=== PATIENT | female | born 1965 | race Caucasian/White ===

== ENCOUNTER 2018-10-17 09:27 | Outpatient (CLI) | payer OTHER ==
[~2018-10-17] VITALS: Ht 175.3 cm; Wt 57.7 kg
--- NOTE | ~2018-10-17 | HEMODYNAMI ---
PATIENT:REAGAN ANN MEDICAL RECORD: [id number] : 61 LOCATION:[facility] ADMISSION DATE: 10/17/18 Generatedon:10/17/201811:32 Patient name: REAGAN ANN Patient #: [id number] SSN: D OB: 1965 Date of study: 10/17/2018 Page: Of Hemodynamic Procedure Report Patient Data Patient Demographics Procedure consent was obtained First Name: REAGAN Gender: Female Last Name: MARISSA : 1965 [facility] Initial: R Age: 52 year(s) Patient #: [id number] Race: Unknown Additional ID: [id number] Contact details [address]: [address] [place] [address] State: [place] City: [place] Zip code: [address] Admission Admission Data Admission Date: 10/17/2018 Admission Time: 9:27 Procedure Procedure Types Cath Procedure Diagnostic Procedure LHC LHC w/Coronaries FFR/IVUS Intra-Coronary IVUS Initial PCI Procedure Coronary Stent Coronary Stent Initial Procedure Description Procedure Date Procedure Date: 10/17/2018 Procedure Start Time: 11:11 Procedure End Time: 11:24 Procedure Staff Name Function Marco Vaca MD Performing Physician Josefina Dave RT Monitor Florence Peralta RT Scrub Arturo Johnson RN Nurse Andrea Hinds RN Slot Router Procedure Data Cath Procedure Fluoroscopy Diagnostic fluoroscopy Total fluoroscopy Time: 3.6 time: 3.6 min min Diagnostic fluoroscopy Total fluoroscopy dose: 240 dose: 240 mGy mGy Contrast Material Contrast Material Type Amount (ml) Isovue 300 80 Entry Location Entry Primary Successful Side Size Upsize Upsize Entry Closure Elias ccessful Closure Location (Fr) 1 (Fr) 2 (Fr) Remarks Device Remarks Radial Right 6 Fr Mechanical artery Short Compression Estimated blood loss: 5 ml Diagnostic catheters Device Type Used For End Catheter Placement DIAGNOSTIC Ralph 110cm 5 Multi-vessel Fr catheter ([id number]) Angiography Procedure Complications No complications Procedure Medications Medication Administration Route Dosage Oxygen etCO2 Nasal cannula 2 l/min Lidocaine 2% added to field 20 Heparin Flush Bag added to field 2 bags (1000units/500ml NS) Radial Cocktail I.A. 1 syringe (Verapamil 2mg/Nitro 400mcg/Heparin 1500units) 0.9% NaCl I.V. 100 ml/hr Versed I.V. 1 mg Fentanyl I.V. 50 mcg Versed I.V. 1 mg Fentanyl I.V. 50 mcg Heparin Bolus I.V. 4000 units Integrilin (Bolus I.V. 5 ml 2mg/ml) Solumedrol I.V. 125 mg Plavix P.O. 600 mg Hemodynamics Rest Heart Rate: 52 (bpm) Pressure Samples Time Site Value (mmHg) Purpose Heart Use Rate(bpm) 11:13 LV 47/16,23 Snapshot 61 Snapshots Pre Cath Intra NCS Post Cath Vital Signs Time Heart Resp SPO2 etCO2 NIBP Rhythm Pain Status Sedation Rate (ipm) (%) (mmHg) (mmHg) Level (bpm) 11:04:16 48 27 100 32.2 131/72(91) NSR 0 (11) , No 10(A) pain 11:08:30 64 25 97 0 107/68(83) NSR 0 (11) , No 10(A) pain 11:12:40 49 31 99 30.8 116/50(79) NSR 0 (11) , No 9(A) pain 11:16:56 54 15 99 0 91/41(60) NSR 0 (11) , No 9(A) pain 11:21:00 59 17 100 33 109/54(76) NSR 4 (11) , 10(A) Distressing Medications Time Medication Route Dose Verified Delivered Reason Not es Effectiveness by by 11:05:18 Oxygen etCO2 2 l/min Marco Mendez used for Nasal Lio Hinsd RN procedure cannula 11:05:25 0.9% NaCl I.V. 100 Marco Mendez Per physician ml/hr Lio Hinds RN 11:05:34 Lidocaine 2% added 20ml Marco Lara for local to vial Lio Vaca MD anesthetic field 11:05:41 Heparin Flush added 2 bags Marco Lara used for Bag to Lio Vaca MD procedure (1000units/500ml field NS) 11:05:59 Radial Cocktail I.A. 1 Marco Lara for (Verapamil syringe Lio Vaca MD vasodilation 2mg/Nitro 400mcg/Heparin 1500units) 11:09:31 Versed I.V. 1 mg Marco Marileeie for sedation Lio Hinds RN 11:09:37 Fentanyl I.V. 50 mcg Marco Huntie for sedation Lio Hinds RN 11:14:47 Versed I.V. 1 mg Marco Buffie for sedation Lio Hinds RN 11:14:51 Fentanyl I.V. 50 mcg Marco Huntie for sedation Lio Hinds RN 11:19:14 Heparin Bolus I.V. 4000 Marco Huntie for juan ified units Lio Hinds RN anticoagulation with dr vcaa 11:20:38 Integrilin I.V. 5 ml aMrco Mendez for was laura 5 (Bolus 2mg/ml) Lio Hinds RN antiplatelet ml of vial therapy 11:28:03 Solumedrol I.V. 125 mg Marco Mendez Per physician pt states Lio Hinds RN sob, tightness of chest and burning with pain in throat, dr vaca ordered medication for possible reaction. 11:30:53 Plavix P.O. 600 mg Marco Mendez for Lio Hinds RN antiplatelet therapy Procedure Log Time Note 10:53:25 Diagnostic Cath Status : Elective 10:53:45 Florence Peralta RT(R) sent for patient. Start room use. 10:53:46 Time tracking: Regular hours (M-F 7:00 - 5:00) 10:53:50 Plan of Care:Hemodynamics will remain stable., Cardiac rhythm will remain stable., Comfort level will be maintained., Respiratory function will remain adequate., Patient/ family verbilizes understanding of procedure., Procedure tolerated without complication., Recovers from procedure without complications.. 10:55:45 Patient received from Pre/Post Procedure Room to CCL 2 Alert and oriented. Tansferred to table in Supine position. 10:55:47 Warm blankets applied, and adrianne hugger turned on for patient comfort. 10:55:47 Correct patient and procedure confirmed by team. 10:55:48 Signed procedure consent form obtained from patient. 10:55:49 ECG and BP/O2 sat monitors applied to patient. 11:03:04 Baseline sample Acquired. 11:03:04 Vital chart was started 11:03:10 Rhythm: sinus rhythm 11:03:12 Full Disclosure recording started 11:03:16 H&P Date Dictated: 10/17/2018 Within 30 days and on chart., H&P Addendum completed by physician on day of procedure. (MUST COMPLETE FOR ALL OUTPATIENTS). 11:03:17 Pre-procedure instructions explained to patient. 11:03:17 Pre-op teaching completed and patient verbalized understanding. 11:03:20 Family in patients room. 11:03:21 Patient NPO since Midnight. 11:03:24 Is the patient allergic to Iodine/contrast media? No. 11:03:25 Was the patient premedicated? No 11:03:26 Is patient on blood thinner?No 11:03:42 Patient diabetic? No. 11:03:44 Previous problem with sedation/anesthesia? No ? 11:04:01 Snore? Yes 11:04:03 Sleep apnea? No 11:04:03 Deviated septum? No 11:04:04 Opens mouth fully? Yes 11:04:05 Sticks out tongue? Yes 11:04:06 Airway obstruction? No ? 11:04:08 Dentures? No ? 11:04:41 Pre procedure: right dorsailis pedis pulse 2+ Normal; easily identifiable; not easily obliterated 11:04:43 Pre procedure: left dorsailis pedis pulse 2+ Normal; easily identifiable; not easily obliterated 11:04:44 Patient pain scale 0/10 ?. 11:04:50 IV patent on arrival in left antecubital with 0.9% NaCl at O. 11:04:52 Lab results completed and on chart. 11:05:18 Oxygen 2 l/min etCO2 Nasal cannula was administered by Andrea Hinds RN; used for procedure; 11:05:25 0.9% NaCl 100 ml/hr I.V. was administered by Andrea Hinds RN; Per physician; 11:05:27 Right Radial & Right Groin area was prepped with chlora-prep and draped in sterile fashion 11:05:34 Lidocaine 2% 20ml vial added to field was administered by aMrco Vaca MD; for local anesthetic; 11:05:41 Heparin Flush Bag (1000units/500ml NS) 2 bags added to field was administered by Marco Vaca MD; used for procedure; 11:05:59 Radial Cocktail (Verapamil 2mg/Nitro 400mcg/Heparin 1500units) 1 syringe I.A. was administered by Marco Vaca MD; for vasodilation; 11:07:17 Alarms reviewed by R. N. 11:07:18 Sharps counted by scrub and verified by R.N. 11:07:19 Physician arrived 11:07:19 --------ALL STOP TIME OUT------ 11:07:20 Final Timeout: patient, procedure, and site verified with staff and physician. All members of the team are in agreement. 11:07:21 Right Radial & Right Groin site verified by team. 11:07:27 Fire Safety Assessment: A--An alcohol-based skin anteseptic being used preoperatively., C--Open oxygen or nitrous oxide is being used., D--An ESU, laser, or fiber-optic light is being used. 11:07:30 Physical assessment completed. ASA score P 2 - A patient with mild systemic disease as per Marco Vaca MD. 11:09:02 1) 90+ Normal kidney functon but urine findings or structural abnormalities or genetic trait point to kidney disease. 11:09:31 Versed 1 mg I.V. was administered by Andrea Hinds RN; for sedation; 11:09:31 Maximum allowable contrast does (3.7 X eGFR X 0.75)249 ml. 11:09:36 Sedation plan: IV Moderate Sedation Medication:Versed, Fentanyl 11:09:37 Fentanyl 50 mcg I.V. was administered by Andrea Hinds RN; for sedation; 11:09:57 Use device set Radial Dx or PCI 11:09:58 ACIST Syringe (87859) opened to sterile field. 11:09:58 Medline Cath Pack ([id number]) opened to sterile field. 11:09:59 Bag Decanter () opened to sterile field. 11:09:59 ACIST Hand Control (17116) opened to sterile field. 11:09:59 ACIST Manifold (70281) opened to sterile field. 11:10:00 Tegaderm 4 x 4 (1626W) opened to sterile field. 11:10:00 MBrace Wrist Support ([id number]) opened to sterile field. 11:10:02 EMERALD Guide Wire (396-330) opened to sterile field. 11:10:02 SHEATH 6FR Slender (801060) opened to sterile field. 11:11:27 Procedure started. 11:11:32 Local anesthetic to right radial artery with Lidocaine 2% by Marco Vaca MD.INITIAL ACCESS ONLY 11:11:41 A 6 Fr Short sheath was inserted into the Right Radial artery 11:12:25 A DIAGNOSTIC Ralph 110cm 5 Fr catheter (956392) was advanced over the wire and used for Multi-vessel Angiography. 11:13:14 LV hemodynamics recorded. 11:13:16 LV gram done using GR 11:13:22 EF : 60 % 11:13:28 Injector settings: Ml/sec: 5, Volume: 15, 11:14:23 LCA angiography performed. 11:14:25 Injector settings: Ml/sec: 3, Volume: 6, 11:14:28 RCA angiography performed. 11:14:31 Injector settings: Ml/sec: 3, Volume: 6, 11:14:47 Versed 1 mg I.V. was administered by Andrea Hinds RN; for sedation; 11:14:51 Fentanyl 50 mcg I.V. was administered by Andrea Hinds RN; for sedation; 11:14:59 Catheter removed. 11:15:00 Proceeding to intervention. 11:15:33 INFLATOR Merit BasixCompak (RF4145) opened to sterile field. 11:15:34 GUIDE 6FR XBLAD 3.5 catheter ([id number]) opened to sterile field. 11:15:34 [place] IVUS Catheter (94532T) opened to sterile field. 11:15:35 CHOICE PT Extra Support 182cm wire ([id number]) opened to sterile field. 11:15:51 6 Fr xblad guide catheter was inserted over the wire 11:15:59 choice pt wire advanced. 11:16:03 Wire advanced across lesion. 11:16:29 IVUS catheter advanced over wire. 11:19:14 Heparin Bolus 4000 units I.V. was administered by Andrea Hinds RN; for anticoagulation; verified with dr vaca 11:19:19 IVUS pass to LAD lesion performed. 11:20:03 IVUS catheter removed over wire. 11:20:38 Integrilin (Bolus 2mg/ml) 5 ml I.V. was administered by Andrea Hinds RN; for antiplatelet therapy; wasted 5 ml of vial 11:21:18 Place stent Inflation Number: 1 A COBRA RX 3.5 X 15 Stent was prepped and advanced across the Mid LAD . The stent was deployed at 11 RAMAKRISHNA for 0:10 (min:sec) . 11::31 Stent catheter was removed intact over wire. 11::31 Wire removed. 11:22:31 Guide catheter removed. 11:22:35 TR BAND Standard ([id number]) opened to sterile field. 11:22:52 Sheath removed intact; hemostasis achieved with Mechanical Compression to the Right Radial artery. 11:22:54 Procedure ended.(Physican Out) 11:23:02 Fluoroscopy time 03.60 minutes. 11:23:05 Fluoroscopy dose: 240 mGy 11:23:05 Flurop Dose total: 240 11:23:09 Contrast amount:Isovue 300 80ml. 11:23:14 Sharps counted by scrub and verified by R.N. 11:23:16 TR band inflated with 10cc of air. 11:23:17 Insertion/operative site no bleeding no hematoma. 11:23:21 Post right radial artery:stable 11:23:24 Post Procedure Pulses reassessed and unchanged 11:23:27 Post procedure rhythm: unchanged. 11:23:30 Estimated blood loss: 5 ml 11:23:31 Post procedure instruction explained to patient.Patient verbalizes understanding. 11:23:32 Patient needs reinforcement of post procedure teaching. 11:23:47 Procedure type changed to Cath procedure, Diagnostic procedure, LHC, LHC w/Coronaries, FFR/IVUS, Intra-Coronary IVUS Initial, PCI procedure, Coronary Stent, Coronary Stent Initial 11:23:48 Procedure and supply charges have been captured, reviewed, submitted and are correct. 11:23:53 Procedure Complication : No complications 11:23:55 Vital chart was stopped 11:23:55 See physician's report for complete and final results. 11:23:58 Report given to Pre/Post Procedure Room. 11:24:01 Patient transfered to Pre/Post Procedure Room with Stretcher. 11:24:03 Procedure ended. 11:24:03 Full Disclosure recording stopped 11:24:10 ACC-PCI Only Patient was given prescriptions, or instructed by Marco Vaca MD to start/continue the following medications upon discharge: Plavix 11:24:11 End room use (Document Last) 11:28:03 Solumedrol 125 mg I.V. was administered by Andrea Hinds RN; Per physician; pt states sob, tightness of chest and burning with pain in throat, dr vaca ordered medication for possible reaction. 11:30:53 Plavix 600 mg P.O. was administered by Andrea Hinds RN; for antiplatelet therapy; Intervention Summary Intervention Notes Time ActionType Lesion and Equipment Action# Pressure Duration Attributes Used 11:21:18 Place stent Mid LAD COBRA RX 1 11 00:10 3.5 X 15 Stent Device Usage Item Name Manufacture Quantity Catalog Number Hospital Part Current Minimal Lot# / Charge Number Stock Stock Serial# Code ACIST Syringe Acist 1 37583 [id number] 992912 [id number] 20 (55552) Medical Systems Inc Medline Cath Medline 1 [id number] 323004 66527 389988 5 Pack ([id number]) Bag Decanter Microtek 1 2001S 266242 77347 393377 5 (2001S) Medical Inc. ACIST Hand Acist 1 59248 745144 960060 228218 5 Control Medical (53990) Systems Inc ACIST Manifold Acist 1 82717 888589 817324 283348 5 (87774) Medical Systems Inc Tegaderm 4 x 4 3M 1 1626W 718181 618542 028091 5 (1626W) MBrace Wrist Advanced 1 140-0250-00 264776 81161 025556 5 Support Vascular ([id number]) Dynamics EMERALD Guide Cardinal 1 502-455 866173 454329 207241 5 Wire (502-455) Health SHEATH 6FR Terumo 1 [id number] 784592 501975 321954 5 Slender (80-1060) DIAGNOSTIC Terumo 1 405013 129394 845167 366690 5 Ralph 110cm 5 Fr catheter (923846) INFLATOR Merit Merit 1 [id number] 090885 116496 071168 15 Minervax[employer]Looking for Gamers (AF6544) GUIDE 6FR Cardinal 1 [id number] 205088 867119 486146 10 XBLAD 3.5 Health catheter (96969212) [place] 1 [id number] 669139 617618 386457 8 [place] IVUS Catheter (71980K) CHOICE PT [place] 1 [id number] 366247 842189 478699 5 Extra Support Scientific 182cm wire ([id number]) COBRA RX 3.5 X Celonova 1 [id number] 065117 [id number] 9808880 7 [id number] 15 stent Biosciences ([id number]) TR BAND Terumo 1 [id number] 450787 979968 712493 40 Standard ([id number]) Signature Audit [place] Stage Time Signature Unsigned Intra-Procedure 10/17/2018 Josefina Dave 11:32:09 AM RT(R) Signatures Monitor : Josefina Dave RT Signature : Date : Time : [address] [place] [address]
--- NOTE | ~2018-10-17 | OP ---
PATIENT NAME: REAGAN ANN MEDICAL RECORD: [id number] :61 LOCATION:D.[facility] ADMISSION DATE: SURGEON: MICHAEL JEAN MD DATE OF OPERATION: 10/17/2018 DATE OF SERVICE: 10/17/2018 PROCEDURES: 1. PTCA stent of LAD. 2. Intravascular ultrasound of the LAD. 3. Left heart catheterization. 4. Selective coronary angiography. 5. Left ventriculogram. INDICATION: Angina, coronary artery disease, abnormal nuclear stress test, anterior ischemia. PROCEDURE PERFORMED: After informed consent was obtained and after detailed explanation of risks, benefits as well as alternative therapies, the patient elected to proceed with angiogram and angioplasty. The right radial area was prepped and draped in normal sterile fashion. Right radial artery was cannulated via modified Seldinger technique with placement of 6-Persian sheath. All catheters exchanged through this sheath. FINDINGS: Left ventriculogram was performed in standard 30-degree GR view, reveals good cardiac wall motion throughout all segments. Overall ejection fraction is 60%. SELECTIVE CORONARY ANGIOGRAPHY: 1. Left main showed no significant angiographic disease. 2. Left anterior descending has 80% stenosis confirmed by intravascular ultrasound and this correlates with the reversible ischemia on nuclear stress test. 3. Left circumflex has moderate irregularities, but no flow-limiting stenosis. 4. Right coronary has moderate irregularities, but no flow-limiting stenosis. PTCA STENT OF THE LAD: The stent used was a 3.5 x 15 mm Cobra. Result was 0% residual stenosis. OVERALL IMPRESSION: Successful percutaneous transluminal coronary angioplasty stent of the left anterior descending going from 80% initial stenosis to 0% residual. TRANSINT:[id number] Voice Confirmation ID: [id number] DOCUMENT ID: [id number] MICHAEL JEAN MD CC: [id number] DICTATION DATE: 10/17/18 1126 REFINING SUPERVISOR: 10/17/18 1149 [address] [place] [address]
[2018-10-17 09:58] VITALS: BP 123/61; Ht 175.3 cm; Wt 57.7 kg
[2018-10-17 10:08] LABS: BASOPHILS 0.2 % (0-2); EOSINOPHILS 1.7 % (0-7); HEMATOCRIT 43.1 % (36.0-48.0); HEMOGLOBIN 14.8 g/dL (12-16); IMMATURE GRANULOCYTES 0.1 % (0-5); LYMPHOCYTES 18.1 % (15-50); MCH 31.6 pg (26.0-34.0); MCHC 34.3 g/dL (31.0-37.0); MCV 91.9 fL (80.0-100.0); MEAN PLATELET VOLUME 10.4 fL (7.4-10.4); MONOCYTES 6.3 % (2-11); NEUTROPHILS 73.6 % (40-80); PLATELET COUNT 250 10x3/uL (130-400); RBC 4.69 10x6/uL (4.00-5.40); RDW 12.8 % (11.5-14.5); WBC 8.6 10x3/uL (4.8-10.8)
[2018-10-17 10:30] LABS: CALC OSMOLALITY 285 mosm/kg (275-300); CALCIUM 8.9 mg/dL (8.5-10.1); CARBON DIOXIDE 30.2 mmol/L (21.0-32.0); CHLORIDE - SERUM 105 mmol/L (98-107); CREATININE - SERUM 0.7 mg/dL (0.6-1.3); GLUCOSE 91 mg/dL (74-106); POTASSIUM - SERUM 3.7 mmol/L (3.5-5.1); SODIUM 143 mmol/L (136-145); UREA NITROGEN 14 mg/dL (7-18); eGFR NON AFRICAN AMERICAN > 90 mL/min (90-120)
--- NOTE | 2018-10-17 11:40 | NUR ---
PT ARRIVED BY STRETCHER. PLACED ON MONITORS. ASSESSMENT COMPLETED. FAMILY AT BEDSIDE.
[2018-10-17] MEDS ORDERED: PLAVIX75 MG PO (11:50)
[2018-10-17] MEDS ORDERED: BAYER CHEWABLE81 MG PO (11:50)
--- NOTE | 2018-10-17 11:55 | NUR ---
PT RESTING COMFORTABLY. VSS. RIGHT RADIAL TR BAND IN PLACE. NO BLEEDING/HEMATOMA NOTED. TOLERATING SIPS OF WATER. DENIES NAUSEA.
--- NOTE | 2018-10-17 12:25 | NUR ---
RIGHT RADIAL TR BAND IN PLACE. NO BLEEDING/HEMATOMA NOTED. VSS. PT GIVEN A DRINK AND SAN[place]ICH TRAY. STILL DROWSY. CALL LIGHT WITHIN REACH. NO S/S OF RESP DISTRESS NOTED.
--- NOTE | 2018-10-17 12:50 | NUR ---
DISCUSSED DISCHARGE INSTRUCTIONS WITH PT AND PT'S FAMILY. THEY VOICED UNDERSTANDING.
--- NOTE | 2018-10-17 12:56 | NUR ---
PT RESTING COMFORTABLY. VSS. RIGHT RADIAL TR BAND IN PLACE. NO BLEEDING/HEMATOMA NOTED. CALL LIGHT WITHIN REACH.
--- NOTE | 2018-10-17 13:00 | NUR ---
PT TAKEN OUT TO VEHICLE BY WHEELCHAIR. NO S/S OF DISTRESS NOTED. ALL BELONGINGS AND PAPERWORK IN HAND.
--- NOTE | 2018-10-17 13:30 | NUR ---
RIGHT RADIAL TR BAND IN PLACE. NO BLEEDING/HEMATOMA NOTED. VSS. CALL LIGHT WITHIN REACH.
--- NOTE | 2018-10-17 14:02 | NUR ---
PT MORE ALERT. SITTING UP EATING SANDWICH. FAMILY AT BEDSIDE. VSS. CALL LIGHT WITHIN REACH. DENIES NAUSEA.
--- NOTE | 2018-10-17 14:30 | NUR ---
3cc OF AIR REMOVED FROM TR BAND. TOLERATED WELL. NO BLEEDING/HEMATOMA NOTED. VSS.
--- NOTE | 2018-10-17 14:50 | NUR ---
3cc OF AIR REMOVED FROM TR BAND. TOLERATED WELL. NO BLEEDING/HEMATOMA NOTED. VSS.
--- NOTE | 2018-10-17 15:05 | NUR ---
LEFT AC PIV D/C'D WITH CATH TIP INTACT. PT TOLERATED WELL. 2cc OF AIR REMOVED FROM RIGHT RADIAL TR BAND. NO BLEEDING/HEMATOMA NOTED. PT INSTRUCTED TO GET UP AND DRESSED. FAMILY AT BEDSIDE TO ASSIST.
--- NOTE | 2018-10-17 15:15 | NUR ---
PT AMBULATED TO RESTROOM. VOIDED WITHOUT DIFFICULTY. RIGHT RADIAL TR BAND REMOVED. NO BLEEDING/HEMATOMA NOTED. DRESSING APPLIED. RIGHT WRIST BRACE IN PLACE. PT INSTRUCTED TO KEEP ON FOR 2 HOURS AFTER ARRIVAL HOME. SHE VOICED UNDERSTANDING.
--- NOTE | 2018-10-17 15:25 | NUR ---
DISCUSSED DISCHARGE INSTRUCTIONS WITH PT AND PT'S FAMILY. THEY VOICED UNDERSTANDING.
--- NOTE | 2018-10-17 15:40 | NUR ---
PT TAKEN OUT TO VEHICLE BY WHEELCHAIR. NO S/S OF DISTRESS NOTED. ALL BELONGINGS AND PAPERWORK IN HAND. RIGHT WRIST DRESSING C/D/I. NO S/S OF HEMATOMA NOTED.
== END 2018-10-17 15:40 | disposition home or self-care (01) ==
LOC: D.CATH 09:27
PROVIDERS: ATTEND Internal Medicine Interventional Cardiology
DX: I25.119 Atherosclerotic heart disease of native coronary artery with unspecified angina pectoris (principal); R94.30 Abnormal result of cardiovascular function study, unspecified; Z01.812 Encounter for preprocedural laboratory examination